=== PATIENT | female | born 1970 | race Caucasian/White ===

== ENCOUNTER 2017-06-27 16:00 | Emergency (ER) | payer SELFPAY ==
[~2017-06-27] VITALS: Ht 157.5 cm; Wt 68.2 kg
[~2017-06-27 16:00] MED LIST: AMOXICILLIN; BENADRYL; CORTISONE
[2017-06-27 16:08] VITALS: Ht 157.5 cm; Wt 68.2 kg
[2017-06-27] MEDS ORDERED: morphine 10 MG INJ IM ONE (16:30)
[2017-06-27] MEDS: ONDANSETRON 4 MG INJ IM STA ×2 (16:46→16:54)
[2017-06-27] MEDS: KETOROLAC 60 MG INJ IM STA ×2 (16:47→16:53)
[2017-06-27] MEDS ORDERED: GLIP5TAB13 PO (17:19)
[2017-06-27] MEDS ORDERED: ASPI-664 PO (17:20)
[2017-06-27] MEDS ORDERED: LISI-313 PO (17:20)
--- NOTE | 2017-06-27 18:21 | RADRPT ---
PROCEDURE: XR Lumbar Spine. CLINICAL INDICATION: Trauma due to a fall. Back pain. TECHNIQUE: Three views. AP, lateral and cone-down lateral view of the lumbar spine were obtained. COMPARISON: No prior studies are available for comparison. FINDINGS: There is normal stature and alignment of the vertebrae. There is no fracture. There is no lytic or blastic lesion. There are degenerative changes with small osteophytes throughout. The disc height is normal. The paravertebral soft tissues are unremarkable. IMPRESSION: 1. Mild degenerative change. 2. Otherwise unremarkable images of the lumbar spine. RPTAT: QQ .Jose Augustin MD, Date Time Electronically viewed and signed by .Jose Augustin MD, on 06/27/2017 18:21 .R/
--- NOTE | 2017-06-27 18:22 | RADRPT ---
PROCEDURE: XR Left Hip. CLINICAL INDICATION: Trauma due to a fall. Left hip pain. TECHNIQUE: Two views. Frontal and lateral. COMPARISON: No prior studies are available for comparison. FINDINGS: There is no fracture or dislocation. The soft tissues are normal. Articular surfaces are intact. There is no lytic or blastic lesion. There is no radiopaque foreign body. IMPRESSION: 1. Normal images of the left hip. RPTAT: QQ .Jose Augustin MD, MD Date Time Electronically viewed and signed by .Jose Augustin MD, on 06/27/2017 18:21 .R/
[2017-06-27] MEDS ORDERED: ONDANSETRON (ODT) 4 MG TAB ODT STA (18:43)
[2017-06-27 19:14] VITALS: BP 113/69; PULSE 72; RESP 18; TEMP 98
[2017-06-27] MEDS ORDERED: NAPR-688 PO (19:44)
[2017-06-27] MEDS ORDERED: METH500T PO (19:44)
[2017-06-27] MEDS ORDERED: HYDR-906 PO (19:44)
--- NOTE | 2017-06-27 20:02 | ERD ---
ER Documentation Chief Complaint Chief Complaint simona slipped and fell while shopping c/o left hip pain HPI This 38-year-old female presents emergency room after she was at a store when she slipped on a wet floor. Hit her head but landed on her left hip and back. She has pain in her left lower back and her left pelvis and hip area. He is otherwise healthy and did not have any prior injuries. ROS All systems reviewed and are negative except as per history of present illness. Medications Home Meds Active Scripts Methocarbamol* (Robaxin*) 500 Mg Tab, 500 MG PO Q8 for MUSCLE SPASMS, #14 TAB Prov:MIRZA BLANK DO 06/27/17 Naproxen* (Naproxen*) 500 Mg Tablet, 500 MG PO BID Y for PAIN, #20 TAB Prov:MIRZA BLANK DO 06/27/17 Hydrocodone/Acetaminophen (Cadiz 5-325 Tablet) 1 Each Tablet, 1 EACH PO Q6, #10 TAB Prov:MIRZA BLANK DO 06/27/17 Reported Medications Aspirin* (Aspirin* EC) 81 Mg Tablet.dr, 81 MG PO DAILY, TAB 06/27/17 Lisinopril* (Lisinopril*) 5 Mg Tablet, 5 MG PO DAILY, #30 TAB 06/27/17 Glipizide* (Glipizide*) 5 Mg Tablet, 5 MG PO AC BREAKFAST, TAB 06/27/17 Discontinued Reported Medications [Amoxicillin] No Conflict Check 09/10/10 [Cortisone] No Conflict Check 09/10/10 [Benadryl ] No Conflict Check 09/10/10 Allergies Allergies: Coded Allergies: No Known Drug Allergies (Verified Allergy, Mild, 06/27/17) PMhx/Soc History of Surgery: Yes (1984 APPENDIX REMOVED ) Anesthesia Reaction: No Hx Neurological Disorder: No Hx Respiratory Disorders: No Hx Cardiac Disorders: No Hx Psychiatric Problems: No Hx Miscellaneous Medical Probl: No Hx Alcohol Use: No Hx Substance Use: No Hx Tobacco Use: Yes Smoking Status: Current every day smoker Physical Exam Vitals Vital Signs Date Time Temp Pulse Resp B/P Pulse Ox O2 Delivery O2 Flow Rate FiO2 06/27/17 19:14 98.0 72 18 113/69 95 Room Air 06/27/17 16:08 98.1 84 18 115/86 96 Physical Exam Const: [] Mild distress Head: Atraumatic Eyes: Normal Conjunctiva ENT: Normal External Ears, Nose and Mouth. Neck: Full range of motion..~ No meningismus. Skin: No petechiae or rashes Back: Mild left paraspinal muscle tenderness with no midline tenderness. Ext: No cyanosis, or edema. Mild tenderness of left acetabular area, able to move left extremity but does have pain in her lower back when she does so. No deformities. Distal pulses intact Neur: Awake and alert and oriented 3, no focal deficits Psych: Normal Mood and Affect Results 24 hrs Current Medications Medications (Trade) Dose Ordered Sig/Mino Route PRN Reason Start Time Stop Time Status Last Admin Dose Admin Morphine Sulfate (morphine) 6 mg ONCE ONCE IM 06/27/17 16:30 06/27/17 16:31 DC 06/27/17 16:47 Ondansetron HCl (Zofran Inj) 4 mg ONCE STAT IM 06/27/17 16:11 06/27/17 16:16 DC Ketorolac Tromethamine (Toradol) 60 mg ONCE STAT IM 06/27/17 16:11 06/27/17 16:16 DC Ondansetron HCl (Zofran Odt) 4 mg ONCE STAT ODT 06/27/17 18:43 06/27/17 18:44 DC 06/27/17 18:51 Procedures/MDM Lower back and left hip contusion without any fracture. Patient was given 4 mg of morphine IM and Zofran ODT tab after which her pain was much better. She refused Toradol. She is ambulatory. I am discharging her with a few Cadiz as well as naproxen and Robaxin. Primary care follow-up in 2 3 days and strict return precautions to the ER. X-ray interpretation left hip: I see no fracture dislocation or soft tissue abnormality. Normal left hip x-ray Lumbar spine x-ray interpretation: I see no fracture dislocation or soft tissue abnormality, normal lumbar series. Departure Diagnosis: Primary Impression: Contusion of hip, left Additional Impression: Contusion of lower back Condition: Stable Patient Instructions: Contusion, Back Additional Instructions: Llame al doctor MAANA y mann laura LISE PARA DENTRO DE 2-3 SELLERS.Dgale a la secretaria que nosotros le instruimos hacer esta lise.Avise o llame si cooley condicin se empeora antes de la lise. Regresa aqui si peor o no mejor. MIRZA BLANK DO Jun 27, 2017 20:02
== END 2017-06-27 19:53 | disposition home or self-care (01) ==
LOC: E/R 16:00
DX: S70.02XA Contusion of left hip, initial encounter (principal); S30.0XXA Contusion of lower back and pelvis, initial encounter; F17.210 Nicotine dependence, cigarettes, uncomplicated; W01.0XXA Fall on same level from slipping, tripping and stumbling without subsequent striking against object, initial encounter; Y92.9 Unspecified place or not applicable; Z79.82 Long term (current) use of aspirin; Z79.84 Long term (current) use of oral hypoglycemic drugs
CPT/HCPCS: 72100; 73510; 96372; 99284; J1885; J2270; J2405